=== PATIENT | female | born 1965 | race Caucasian/White ===

== ENCOUNTER 2022-02-14 09:03 | Outpatient (REF) | payer MEDICARE, MEDICAID, SELFPAY ==
--- NOTE | ~2022-02-14 | MM_ITS ---
EXAMINATION: MM SCREENING DIGITAL BREAST TOMOSYNTHESIS, BILATERAL CLINICAL INFORMATION: Screening. Asymptomatic. The lifetime risk of breast cancer based on the Tyrer-Cuzick Model is 10%. COMPARISON: Mammography: 02/04/2019 (new baseline) TECHNIQUE: Digital breast tomosynthesis is performed in both the craniocaudal and mediolateral oblique views along with computer-aided detection (CAD). Synthesized 2D images are generated from the tomosynthesis. FINDINGS: There are scattered areas of fibroglandular density (ACR BI-RADS breast composition Category b). Parenchymal pattern is similar to new baseline exam 2019. There is no interval mass or architectural abnormality or abnormal calcifications. Again, there are grouped punctate dermal calcifications mid 5:00 right breast. The axilla are unremarkable. MM/MM tomosynthesis screening BI IMPRESSION: There are no significant changes from prior study. ASSESSMENT: BI-RADS 2: Benign RECOMMENDATION: Routine annual mammography screening. This patient's information was entered into a reminder system with a target due date for their next mammogram.
--- NOTE | ~2022-02-14 | MM_ITS ---
EXAMINATION: BONE DENSITOMETRY CLINICAL INDICATION: Menopausal. COMPARISON: None (current study represents initial baseline exam). TECHNIQUE: Using a [employer] DXA System (software version: 13.1) manufactured by [employer], dual-energy x-ray absorptiometry was performed of the lumbar spine and left hip. The images are of good technical quality. Summary results are attached. FINDINGS: AP SPINE L1-L4: BMD 1.253 g/cm2, Z-score 0.6, T-score 0.6, normal. LEFT FEMUR, NECK: BMD 1.174 g/cm2, Z-score 1.5, T-score 1.0, normal. LEFT FEMUR, TOTAL: BMD 1.178 g/cm2, Z-score 1.4, T-score 1.3, normal. IDENTIFIED RISK FACTORS: Tobacco use (current smoker), history of fracture (adult). HISTORY OF FRACTURE: No insufficiency fracture reported. . MEDICATIONS: Calcium supplements or multivitamin, vitamin D. MM/XR DEXA axial skeleton IMPRESSION: 1. DIAGNOSIS: Normal bone density based on the lowest T-score value of 0.6 in the lumbar spine applying World Health Organization criteria. 2. 10-YEAR FRACTURE RISK PREDICTION, FRAX: According to the guidelines, FRAX calculation should only be performed on patients in the osteopenia bone density category. Therefore, FRAX was not performed on this patient. 3. Treatment Recommendations: NOF guidelines recommend consideration for treatment in postmenopausal women and men age 50 and older presenting with the following: -A hip or vertebral (clinical or morphometric) fracture. -T-score less than or equal to -2.5 at the femoral neck or spine after appropriate evaluation to exclude secondary causes. -Low bone mass at the hip or spine and a 10-year fracture probability by FRAX of greater than or equal to 3% for hip fracture or greater than or equal to 20% for major osteoporotic fracture based on the [place] adapted WHO algorithm. 4. Other Recommendations: All treatment decisions require clinical judgment and consideration of individual patient factors, including patient preferences, comorbidities, previous drug use, risk factors not captured in the FRAX model (e.g. frailty, falls, vitamin D deficiency, increased bone turnover, interval significant decline in bone density) and possible under or overestimation of fracture risk by FRAX. FUTURE SCAN RECOMMENDATION: People with diagnosed cases of osteoporosis or at high risk for fracture should have regular bone mineral density tests. For patients eligible for Medicare, routine testing is allowed once every 2 years. The testing frequency can be increased to one year for patients who have rapidly progressing disease, those who are receiving or discontinuing medical therapy to restore bone mass, or have additional risk factors.
== END 2022-02-14 09:04 | disposition home or self-care (01) ==
LOC: HO.MAMMO 09:03
PROVIDERS: PCP Internal Medicine; Visit Provider Internal Medicine
DX: Z12.31 Encounter for screening mammogram for malignant neoplasm of breast (principal); Z13.820 Encounter for screening for osteoporosis; Z78.0 Asymptomatic menopausal state
CPT/HCPCS: 77063; 77067; 77080

== ENCOUNTER 2024-07-08 14:09 | Outpatient (REF) | payer MEDICARE, MEDICAID, SELFPAY ==
[2024-07-09 10:04] LABS: HPV 16,18/45 See PAP report
== END 2024-07-08 14:10 | disposition home or self-care (01) ==
LOC: HO.LNP 14:09
PROVIDERS: PCP Internal Medicine; Visit Provider Obstetrics & Gynecology
DX: N95.0 Postmenopausal bleeding (principal); N84.1 Polyp of cervix uteri
CPT/HCPCS: 57500; 87624; 88175; 88305; 99202

== ENCOUNTER 2024-07-08 14:17 | Outpatient (AMB) | payer MEDICARE, MEDICAID, SELFPAY ==
--- NOTE | 2024-07-08 14:15 | A.OFFVIS_ITS ---
Vital Signs 07/08/24 14:18 Height 5 ft 3.5 in Weight 194 lb BMI 33.8 BP 130/86 Intake Visit Reasons: PMB Route Returner Required: No Information Interpreted: non-clinical & clinical Administrative Personal Assistant: Administrative Personal Assistant Present (Mame DURBINJess) Accompanied by: Self / Same As Patient Allergies codeine [CODEINE] Allergy (Unknown, Unverified 07/08/24 14:19) I PASS OUT Post menopausal: Yes HPI Comments Details: Presenting because of vaginal bleeding associated with blood clots that started last week. Last co testing in 2012 was LISA 1 can not rule out high-grade, colpo/biopsy showed LISA 1, since then no co testing done Last mammogram was in 02/23 was BI-RADS 2, the patient is scheduled for a mammogram soon [facility] Medical History (Updated 07/08/24 @ 14:59 by Yoni Dowell MD) LISA I (cervical intraepithelial neoplasia I) Family History Father HTN (hypertension) Maternal Aunt Breast cancer Social History Household Members: Family Housing: House Alcohol intake: former Patient Tobacco Use Status: Current everyday Tobacco user Tobacco use type: Cigarette Cigarettes Per Day: 10 Years Smoked: 30 Current occupational status: disabled Sexual orientation: Straight/Heterosexual Gender identity: Female Female Reproductive History Menstrual Menopause type: natural Total pregnancies: 6 Full term: 3 Number of Living Children: 3 Ab spontaneous: 3 Review of Systems Const All systems reviewed & are unremarkable except as noted in HPI and below Physical Exam Vital Signs: Last Vital Signs BP 130/86 07/08/24 14:18 BMI result Body Mass Index 33.8 General: Yes no CVA tenderness External Female Exam: normal external appearance and normal appearance of the urethra Speculum Exam - Vagina: normal appearance of the vagina, normal palpation, no lesions and no masses Speculum Exam - Cervix: normal appearance of the cervix, normal palpation, no lesions, no masses, nontender and Other cervical findings present (Endocervical polyp) Bimanual exam- vagina & uterus: normal bimanual exam, normal palpation, uterine size normal, normal palpation, uterine shape normal, No Cervical tenderness present and non-tender Bimanual Exam- Adnexa, other: normal adnexae Back/Spine/Pelvis Back: no CVA tenderness Office Procedures Endometrial Biopsy Details: The patient was counseled regarding the indication and benefits of endometrial sampling to rule out endometrial pathology including not limited to endometrial hyperplasia or endometrial cancer and others; The alternatives (Either do nothing vs. hysteroscopy D&C) & the risks were discussed with the patient including but not limited: pain, uterine perforation, bleeding, infection, possible injury to bladder, bowel, ureter, possible need for blood transfusion w ith all its possible risks. The patient verbalized understanding all questions answered and signed consent. The patient was placed into the dorsal lithotomy position; a speculum was inserted in the vagina. Using aseptic technique for the procedure, the cervix was cleansed with Betadine. The anterior lip of the cervix was grasped with a single tooth tenaculum. The uterus was sounded to 7 cm with a 4 mm Pipelle was used. Tissues samples were obtained and placed in formalin, in a patient labeled container and sent to the pathology department. At the end of the procedure, there was minimal b leeding noted The patient tolerated the procedure well and was discharged in good condition with the following instructions: Nothing in the vagina until the bleeding stops. No sex until the bleeding stops, to call if any of the following occurs: fever (>100.4), flu-like symptoms, abdominal pain, heavy bleeding, four smelling vaginal discharge. The patient was instructed to schedule a Follow up appointment in 2 weeks to discuss pathology results of the biopsy and treatment options. This note was generated with a voice recognition program. Some errors may have been overlooked during the review of this note. Sometimes these errors may affect the content or meaning of a given sentence. 13508-Eegrvczzfrb Biopsy STOCK PARTS INSPECTOR Biopsy Before the procedure was started, discussed with the patient the procedure technique, alternatives & all the risks associated with the procedure including but not limited to: bleeding , infection, uterine perforation, injury to bladder, vessels, bowels, possible need for transfusion with all its risks, and others. All questions were answered, the patient verbalized understanding and signed the consent. Urine test done in the office was negative Using a long Andreina Clamp the endocervical polyp was grasped and twisted around till it came off, hemostasis was secured using pressure. The patient tolerated t he procedure well. Instructions were given to the patient to call if bleeding, temp>100.4 occur. The patient verbalized understanding and agreed with the plan. This note was generated with a voice recognition program. Some errors may have been overlooked during the review of this note. Sometimes these errors may affect the content or meaning of a given sentence. 63945-Zpdiyd of Cervix Procedure code (CPT) selection complete Assessment & Plan Assessment & Plan (1) Postmenopausal bleeding: Code(s): N95.0 - Postmenopausal bleeding Category: Medical Plan: Discussed with the patient the differential diagnosis of post menopausal bleeding with normal pelvic exam including but not limited to, endometrial hyperplasia, cancer, polyps and other causes; co testing done. Recommended to the patient that the next step is an endometrial sampling via hysteroscopy D&C possible polypectomy versus endometrial biopsy to r/o endometrial pathology including hyperplasia or cancer. All the pros and cons risks and benefits of each approach were discussed with the patient, endometrial biopsy being less invasive, office procedure with less sensitivity and inability diagnose a polyp and removal versus hysteroscopy done under anesthesia more invasive more sensitive to endometrial cancer and possibility of diagnosing and endometrial polyp with the possibility of polypectomy. All questions were answered pt verbalized understanding and decided to proceed with endometrial biopsy. EMB done, see procedure note Instructed the patient to schedule an ultrasound with a follow-up appointment in 2 weeks. This note was generated with a voice recognition program. Some errors may have been overlooked during the review of this note. Sometimes these errors may affect the content or meaning of a given sentence. (2) Endocervical polyp: Code(s): N84.1 - Polyp of cervix uteri Category: Medical Plan: Discussed with the patient the finding on pelvic exam showing endocervical polyp, polypectomy done, see procedure note Orders: Orders Pap Smear Today N84.1 - Polyp of cervix uteri, N95.0 - Postmenopausal bleeding US pelvic and transvaginal Today N95.0 - Postmenopausal bleeding AMB STOCK PARTS INSPECTOR Biopsy Today N84.1 - Polyp of cervix uteri Surgical Today N84.1 - Polyp of cervix uteri, N95.0 - Postmenopausal bleeding AMB Endometrial Biopsy Today N95.0 - Postmenopausal bleeding Coding Level of Care Code New Pt Level 3 (29120) Procedure Only Diagnoses Postmenopausal bleeding N95.0 Endocervical polyp N84.1 CPT Codes Endometrial Biopsy - CPT: 06121-Qtvsbxtclka Biopsy ([id number]) STOCK PARTS INSPECTOR Biopsy - CPT: 56454-Lpyeya of Cervix ([id number])
[2024-07-08 14:18] VITALS: BP 130/86; BMI 33.8
== END 2024-07-08 15:10 | disposition home or self-care (01) ==
PROVIDERS: PCP Internal Medicine; Visit Provider Obstetrics & Gynecology
DX: N95.0 Postmenopausal bleeding (principal); N84.1 Polyp of cervix uteri
CPT/HCPCS: 57500; 99203

== ENCOUNTER 2025-06-08 20:12 | Emergency (ER) | payer MEDICARE, MEDICAID, SELFPAY ==
[2025-06-08 20:37] VITALS: BP 178/95; PULSE 108; RESP 20; TEMP 36.9; O2SAT 96; BMI 34.1
--- NOTE | 2025-06-08 20:46 | ECG_ITS ---
Test Reason : PALPITATIONS Blood Pressure : */* mmHG Vent. Rate : 96 BPM Atrial Rate : 96 BPM P-R Int : 184 ms QRS Dur : 78 ms QT Int : 368 ms P-R-T Axes : 61 88 69 degrees QTcB Int : 464 ms Normal sinus rhythm Septal infarct , age undetermined Abnormal ECG No previous ECGs available Referred By: Generic ED Physician Electronically Signed By: Diallo Genao
[2025-06-08 21:20] LABS: Hematocrit 46.8 % (37.0-47.0); Hemoglobin 16.0 g/dl (12.0-16.0); Imm Gran Abs Auto 0.02 X10*3/uL (0.00-0.03); Imm Gran Pct Auto 0.2 % (0.0-0.4); Lymphocytes Absolute Auto 1.8 X10*3/uL (1.2-4.9); MANUAL DIFF FLAG NO; Mean Corpuscular HGB Conc 34.2 g/dl (31.0-35.0); Mean Corpuscular Hemoglobin 29.5 pg (27.0-33.0); Mean Corpuscular Volume 86.3 fL (80.0-98.0); NRBC Abs Auto 0.000 X10*3/uL (0.0-0.012); NRBC Pct Auto 0.0 /100WBC (0.0-0.2); Platelet Count 286 X10*3/uL (160-400); Red Blood Count 5.42 X10*6/uL (4.20-5.50); White Blood Count 8.3 X10*3/uL (4.8-10.8)
[2025-06-08 21:22] LABS: Appearance Urine Clear; Glucose Urine UA Negative (Negative); PH 7.5 (5.0-9.0); Specific Gravity - Urine <= 1.005 (1.005-1.025); UMIC TRIGGER UACC YES
[2025-06-08 21:24] LABS: UACC Culture Trigger YES
[2025-06-08 21:36] LABS: Anion Gap 11 (12-20); Blood Urea Nitrogen 6 mg/dL (9-16); Calcium 9.8 mg/dL (8.4-10.2); Carbon Dioxide 25 mmol/L (22-29); Chloride 104 mmol/L (96-108); Creatinine Clr Calc Pharmacy 95.9; Estimated Glomerular Filt Rate > 60; Potassium 4.1 mmol/L (3.3-5.1); Sodium 136 mmol/L (135-145)
[2025-06-08 21:38] LABS: Alanine Aminotransferase 37 U/L (0-31); Albumin Level 4.7 g/dL (3.5-5.0); Alkaline Phosphatase 93 U/L (39-117); Aspartate Amino Transferase 33 U/L (5-31); Lipase 20 U/L (8-78); Total Protein 8.0 g/dL (6.5-8.0)
[2025-06-08 21:39] LABS: IDNOW Serial# 55D5AD1C; Strep A Nucleic Acid Negative (Negative)
[2025-06-08 21:46] LABS: Troponin-I High Sensitivity < 2.7 ng/L (<3.5-17.0)
[2025-06-08 22:05] VITALS: BP 149/82; PULSE 104; RESP 20; TEMP 36.9; O2SAT 96
--- NOTE | 2025-06-08 22:38 | ECG_ITS ---
Test Reason : PALPITATION Blood Pressure : */* mmHG Vent. Rate : 99 BPM Atrial Rate : 99 BPM P-R Int : 186 ms QRS Dur : 78 ms QT Int : 356 ms P-R-T Axes : 73 96 82 degrees QTcB Int : 456 ms Normal sinus rhythm Rightward axis Borderline ECG When compared with ECG of 08-Jun-2025 20:58, No significant change was found Referred By: Arcelia Marquez Electronically Signed By: Diallo Genao
--- NOTE | 2025-06-08 22:54 | ED_ITS ---
HPI - General Adult General Chief complaint: General Medical Stated complaint: high blood pressure Time Seen by Provider: 06/08/25 22:27 Source: patient, family and old records reviewed Mode of arrival: ambulatory Limitations: no limitations History of Present Illness ED Provider: DR. Marquez HPI narrative: 59-year-old female history of hypertension, anxiety, seasonal asthma use albuterol once every 5 years, was prescribed albuterol by her PCP the patient had to use it every 6 hours for 2 days patient is feeling jittery, anxious, fine tremors, checked her blood pressure at home systolic was 170, palpitation patient came to the hospital. Patient currently has no wheezing, no shortness of breath, appeared very anxious, feels palpitation and rapid heartbeat. Patient is suggesting that all her symptoms is secondary to albuterol side- effect. No dysuria, no frequency urination, no hematuria. Related Data Previous Rx's ?Medication ?Instructions ?Recorded lisinopril 5 mg tablet 5 mg PO DAILY #90 tabs 03/29 albuterol sulfate 90 mcg/actuation 2 puff inhalation Q 6H PRN 06/02/25 aerosol inhaler (Ventolin HFA) shortness of breath or wheezing #8.5 grams Allergies Allergy/AdvReac Type Severity Reaction Status Date / Time codeine (CODEINE) Allergy Unknown I PASS Verified 06/08/25 22:52 OUT loratadine (From Claritin) Allergy Unknown Verified 06/08/25 22:52 procaine (From Novocain) Allergy Palpitation Verified 06/08/25 22:52 s Review of Systems 2 Review of Systems: All other systems are reviewed and are negative Constitutional: Reports as per HPI and Reports no additional constitutional complaints Eyes: Reports as per HPI and Reports no additional eye complaints Reports system reviewed and no additional complaints, except as documented Cardiovascular: Reports as per HPI and Reports no additional cardiovascular complaints Respiratory: Reports as per HPI and Reports no additional respiratory complaints Gastrointestinal: Reports as per HPI and Reports no additional gastrointestinal complaints Genitourinary: Reports no additional female genitourinary complaints Musculoskeletal: Reports no additional musculoskeletal complaints Skin/Breast: Reports system reviewed and no additional complaints, except as docu Psychiatric: Reports no additional psychiatric complaints Endocrine: Reports no additional endocrine complaints Hematologic/Lymphatic: Reports no additional hematologic/lymphatic complaints Allergic/Immunologic: Reports no additional allergic/immunologic complaints Reports system reviewed and no additional complaints, except as documented and Reports Abnormal speech present [facility] Past Medical History Medical History LISA I (cervical intraepithelial neoplasia I) Family History Family History Father HTN (hypertension) Maternal Aunt Breast cancer Social History Social History Household Members: Family Housing: House Alcohol intake: former Patient Tobacco Use Status: Current everyday Tobacco user Tobacco use type: Cigarette Cigarettes Per Day: 10 Years Smoked: 30 Smoked in Last 30 Days: Yes Use of substances other than those prescribed or required for medical reasons: No Advance Directives: No Advance Directives Information Provided: No Patient : No Current occupational status: disabled Sexual orientation: Straight/Heterosexual Gender identity: Female Physical Exam ED Vital Signs: Vital Signs - 24 hr 06/08/25 20:37 06/08/25 22:05 Temperature 98.4 F 98.4 F Pulse Rate 108 H 104 H Respiratory Rate 20 20 Blood Pressure 178/95 H 149/82 H Pulse Oximetry 96 96 Oxygen Delivery Method Room Air Room Air BMI result Body Mass Index 34.1 Vital signs have been reviewed and appear to be correct. Blood pressure elevated. Heart rate normal. Respiratory rate normal. Temperature normal. Oxygen saturation normal. Appearance: Alert. Oriented X3. No acute distress. Head: Normal external exam. Normocephalic. Atraumatic. No Dumont signs noted. No raccoon eyes noted Eyes: PERRLA. EOMI. Conjunctiva and sclera normal. Eyelids normal. ENT: TM's Normal. Pharynx normal. Uvula midline. Moist mucous membranes. No trismus noted. No drooling noted. No muffled voice noted. Neck: Normal inspection. Neck supple. FROM. No adenopathy. Thyroid Normal. No meningeal signs. No neck mass noted. CVS: Normal heart rate and rhythm. Heart sound normal. No murmurs noted. Pulses normal throughout. Respiratory: No respiratory distress. Painless inspiration. Breath sounds normal. No wheezes/rales/rhonchi noted. Chest nontender. No accessory muscle usage noted or decreased air movement noted. Abdomen: Soft and nontender. Bowel sounds normal in all 4 quadrants. No distention noted. No organomegaly noted. No visible injury noted. Back: No CVA tenderness. Full range of motion noted. Skin: Skin warm and dry. Normal skin color. Normal skin turgor. No rashes/lesions/lacerations noted. Extremities: No lower extremity edema. Extremities exhibit normal range of motion. Extremities nontender. Neuro: Oriented X 3. Cranial nerve exam: II-XII are grossly intact No motor deficit. No sensory deficit. Reflexes normal. Course Reevaluation(s) Reevaluation #1: Side-effect of albuterol, presented with high blood pressure and palpitation with tachycardia feeling jittery and anxious. Patient in the ED showing no respiratory distress, no wheezing, no coughing, was given Valium, patient is more calmer, vital signs is improving while in the ED. Mild UTI patient has no neurological symptoms. Time: 00:20 Medications Administered Discontinued Medications Generic Name Dose Route Start Last Admin Trade Name Freq PRN Reason Stop Dose Admin Diazepam 2 mg 06/08/25 22:38 06/08/25 22:52 Diazepam 2 Mg Tablet PO 06/08/25 22:39 2 mg ONCE ONE Administration Medical Decision Making Differential Diagnosis Differential Diagnoses: The differential diagnosis associated with the presentation includes (Slept affective albuterol, anxiety, electrolyte derangement, severe anemia, ACS, dysrhythmia, UTI.) Admission/Observation Consideration of admission/observation: Escalation of care including admission/observation considered Lab Data MDM Lab Attestation statement: I reviewed the patient's lab results. 06/08/25 21:02 06/08/25 21:02 Labs: Lab Results 06/08/25 06/08/25 Range/Units 21:02 21:12 WBC 8.3 (4.8-10.8) X10*3/uL RBC 5.42 (4.20-5.50) X10*6/uL Hgb 16.0 (12.0-16.0) g/dl Hct 46.8 (37.0-47.0) % MCV 86.3 (80.0-98.0) fL MCH 29.5 (27.0-33.0) pg MCHC 34.2 (31.0-35.0) g/dl RDW 13.0 (11.0-16.0) % Plt Count 286 (160-400) X10*3/uL MPV 8.6 L (9.4-12.3) fL Immature Gran % (Auto) 0.2 (0.0-0.4) % Neut % (Auto) 69.4 (45-73) % Lymph % (Auto) 21.9 (20-40) % [place] % (Auto) 6.2 (2-11) % Eos % (Auto) 1.2 (0-4) % Baso % (Auto) 1.1 (0-2) % Lymph # (Auto) 1.8 (1.2-4.9) X10*3/uL [place] # (Auto) 0.5 (0.1-1.2) X10*3/uL Eos # (Auto) 0.1 (0.0-0.4) X10*3/uL Baso # (Auto) 0.1 (0.0-0.2) X10*3/uL Abs Immat Gran (auto) 0.02 (0.00-0.03) X10*3/uL Absolute Neuts (auto) 5.7 (2.0-8.3) x10*3/uL Absolute Nucleated RBC 0.000 (0.0-0.012) X10*3/uL Nucleated RBC % (auto) 0.0 (0.0-0.2) /100WBC Sodium 136 (135-145) mmol/L Potassium 4.1 (3.3-5.1) mmol/L Chloride 104 (96-108) mmol/L Carbon Dioxide 25 (22-29) mmol/L Anion Gap 11 L (12-20) BUN 6 L (9-16) mg/dL Creatinine 0.67 (0.5-1.4) mg/dL Estim Creat Clear Calc 95.9 Estimated GFR > 60 Random Glucose 124 H (60-115) mg/dL Calcium 9.8 (8.4-10.2) mg/dL Total Bilirubin 0.3 (0.0-1.0) mg/dL Direct Bilirubin 0.1 (0.0-0.5) mg/dL AST 33 H (5-31) U/L ALT 37 H (0-31) U/L Alkaline Phosphatase 93 (39-117) U/L Troponin I High Sens < 2.7 (<3.5-17.0) ng/L Total Protein 8.0 (6.5-8.0) g/dL Albumin 4.7 (3.5-5.0) g/dL Lipase 20 (8-78) U/L Urine Color Yellow Urine Appearance Clear Urine pH 7.5 (5.0-9.0) Ur Specific [place] <= 1.005 (1.005-1.025) Urine Protein Negative (Neg-Trace) mg/dL Urine Glucose (UA) Negative (Negative) mg/dL Urine Ketones Negative (Negative) mg/dL Urine Blood Negative (Negative) Urine Nitrite Negative (Negative) Ur Leukocyte Esterase Small (1+) H (Negative) Urine RBC 0-2 (0-2) /HPF Urine WBC 11-20 H (0-5) /HPF Ur Squamous Epith Cells 11-20 (0-2) /HPF Urine Bacteria 4+ (None Seen) Hyaline Casts 0-2 (0-2) /LPF S. pyogenes GrpA WILL Negative (Negative) Discharge Plan Discharge Clinical Impression: Anxiety, Albuterol adverse reaction Patient Disposition: Home, Self-Care Instructions: Anxiety (ED) Prescriptions: No Action lisinopril 5 mg tablet 5 mg PO DAILY Qty: 90 1RF albuterol sulfate [Ventolin HFA] 90 mcg/actuation HFA aerosol inhaler 2 puff inhalation Q6H PRN (Reason: shortness of breath or wheezing) Qty: 8.5 0RF Referrals: Ana M Naik PA [Primary Care Provider, Hospitalist] Print Language: Spanish
[2025-06-08 23:18] VITALS: BP 150/82; PULSE 94; RESP 12; O2SAT 97
[2025-06-08 23:32] VITALS: BP 150/82; PULSE 94; RESP 12; TEMP 36.6; O2SAT 97
== END 2025-06-08 23:39 | disposition home or self-care (01) ==
PROVIDERS: Emergency Provider Emergency Medicine; PCP Physician Assistant
DX: F41.9 Anxiety disorder, unspecified (principal); R00.2 Palpitations; R00.0 Tachycardia, unspecified; T48.6X5A Adverse effect of antiasthmatics, initial encounter; Y92.9 Unspecified place or not applicable; J45.909 Unspecified asthma, uncomplicated; I10 Essential (primary) hypertension; Z88.4 Allergy status to anesthetic agent; Z88.5 Allergy status to narcotic agent
CPT/HCPCS: 36415; 80048; 80076; 81001; 83690; 84484; 85025; 87086; 87147; 87651; 93005; 99284

== ENCOUNTER → 2025-06-08 20:46 | Outpatient (BNV) | payer MEDICARE, MEDICAID, SELFPAY | PROVIDERS: Emergency Provider Emergency Medicine; PCP Physician Assistant; Visit Provider Internal Medicine Cardiovascular Disease | DX: R94.31 Abnormal electrocardiogram [ECG] [EKG] (principal); R00.2 Palpitations | CPT/HCPCS: 93010 ==

== ENCOUNTER 2025-06-10 05:23 | Emergency (ER) | payer MEDICARE, MEDICAID, SELFPAY ==
[2025-06-10 05:26] VITALS: BP 187/86; PULSE 94; RESP 20; TEMP 36.3; O2SAT 97; BMI 33.8
[2025-06-10 05:44] VITALS: BP 181/84; PULSE 94; RESP 18; O2SAT 94
--- NOTE | 2025-06-10 05:56 | PC.NURSE ---
pt reports taking her blood pressure at 0300 today and noting it was elevated above 180 systolic. She was unsure if she took her lisinopril and decided to take another dose. Her b/p has not gone down lower then 155 systolic and this is what brings her in. pt denies chest pain or headache at this time.
--- NOTE | 2025-06-10 05:58 | MHC.EDTECH ---
pt refusing blood work until she is seen by the provider. rn aware.
--- NOTE | 2025-06-10 06:18 | ED_ITS ---
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 She has had no medications for anxiety at home. No chest pain no headaches no vision changes no weakness in upper or lower extremities. Related Data Previous Rx's ?Medication ?Instructions ?Recorded lisinopril 5 mg tablet 5 mg PO DAILY #90 tabs 03/29 albuterol sulfate 90 mcg/actuation 2 puff inhalation Q 6H PRN 06/02/25 aerosol inhaler (Ventolin HFA) shortness of breath or wheezing #8.5 grams Allergies Allergy/AdvReac Type Severity Reaction Status Date / Time codeine (CODEINE) Allergy Unknown I PASS Verified 06/10/25 05:28 OUT loratadine (From Claritin) Allergy Unknown Verified 06/10/25 05:28 procaine (From Novocain) Allergy Palpitation Verified 06/10/25 05:28 s Review of Systems Constitutional: Constitutional: Reports as per [facility] Past Medical History Medical History LISA I (cervical intraepithelial neoplasia I) Family History Family History Father HTN (hypertension) Maternal Aunt Breast cancer Social History Social History Household Members: Family Housing: House Alcohol intake: former Patient Tobacco Use Status: Current everyday Tobacco user Tobacco use type: Cigarette Cigarettes Per Day: 10 Years Smoked: 30 Advance Directives: No Current occupational status: disabled Sexual orientation: Straight/Heterosexual Gender identity: Female Physical Exam ED Exam Exam: General: ?Appears of stated age, somewhat anxious, ? ?CV: RRR, no obvious murmurs appreciated ? ?Resp: ?No wheezing rales rhonchi no stridor moving air well ? Abd: ?Bowel sounds are present, no tenderness no rebound no rigidity ? ?MSK: FROM, strength 5/5 all extremities ? Skin: Warm, dry, intact, ? ?Neuro: ?Alert and oriented x3, moving upper and lower extremities symmetrically, no obvious facial asymmetry noted, cranial nerves 2-12 intact Vital Signs: Vital Signs - 24 hr 06/10/25 05:26 06/10/25 05:44 06/10/25 07:01 Temperature 97.4 F Pulse Rate 94 94 81 Respiratory Rate 20 18 20 Blood Pressure 187/86 H 181/84 H 172/86 H Pulse Oximetry 97 94 Oxygen Delivery Method Room Air Room Air BMI result Body Mass Index 33.8 Medications Administered Discontinued Medications Generic Name Dose Route Start Last Admin Trade Name Freq PRN Reason Stop Dose Admin Diazepam 4 mg 06/10/25 06:46 06/10/25 07:00 Diazepam 2 Mg Tablet PO 06/10/25 06:47 4 mg ONCE ONE Administration Medical Decision Making Medical Decision Making MDM Narrative: 7:30 AM 06/10/2025 (Dr. Neymar Pantoja): You were reviewed patient's workup from June 08, unremarkable blood work, cardiac enzymes, ECG, today's ECG with no changes to suspect underlying dysrhythmia or ACS, discussed long-term high blood pressure management, no reason for repeating patient's blood work, there was no evidence of any end-organ damage such as stroke, we will provide medication for anxiety, no other psychiatric issues, strong recommendation to follow up with the PCP. Differential Diagnosis Differential Diagnoses: The differential diagnosis associated with the presentation includes (Chronic hypotension, ACS, stroke, ARIEL,) Admission/Observation Consideration of admission/observation: Escalation of care including admission/observation considered Independent Interpretation I performed an independent interpretation of an: EKG (82 beats per minute otherwise normal ECG without dysrhythmia, AV will blocks or ST-T changes to suspect underlying ACS, my independent interpretation) Tests considered The following testing was considered but not selected: CBC, troponin, chemistry, CT brain Chronic Conditions Patient?s care impacted by: Hypertension Discharge Plan Discharge Clinical Impression: Hypertension, Anxiety about health Patient Disposition: Home, Self-Care Additional Instructions: Please to make sure taking your blood pressure medications daily and had the same time, as you were discussed during a prior visit albuterol can cause anxiety and elevated heart rate use it only if you are having wheezing or asthma exacerbation otherwise using albuterol for perceived shortness of breath without an actual asthma attack is going to give you palpitations, can make a anxious and elevate your blood pressure. I reviewed your prior workup all your blood work and cardiac enzymes were really reassuring, ECG today is unremarkable. Please get in touch with your PCP and make sure that you communicate the ER visits and have something that would help you for breakthrough anxiety at home and to prevent your anxiety. Prescriptions: No Action lisinopril 5 mg tablet 5 mg PO DAILY Qty: 90 1RF albuterol sulfate [Ventolin HFA] 90 mcg/actuation HFA aerosol inhaler 2 puff inhalation Q6H PRN (Reason: shortness of breath or wheezing) Qty: 8.5 0RF Referrals: Ana M Naik PA [Primary Care Provider, Hospitalist] - 10 days Clinical Impression: Anxiety about health; Hypertension Discharge Date/Time: 06/10/25 07:04 Print Language: Slovak
--- NOTE | 2025-06-10 06:34 | ECG_ITS ---
Test Reason : htn Blood Pressure : */* mmHG Vent. Rate : 82 BPM Atrial Rate : 82 BPM P-R Int : 176 ms QRS Dur : 82 ms QT Int : 370 ms P-R-T Axes : 78 91 79 degrees QTcB Int : 432 ms Normal sinus rhythm Rightward axis Septal infarct , age undetermined Abnormal ECG When compared with ECG of 08-Jun-2025 22:43, No significant change was found Referred By: Neymar Pantoja Electronically Signed By: Diallo Genao
[2025-06-10 07:01] VITALS: BP 172/86; PULSE 81; RESP 20
== END 2025-06-10 07:04 | disposition home or self-care (01) ==
PROVIDERS: Emergency Provider Emergency Medicine; PCP Physician Assistant
DX: I10 Essential (primary) hypertension (principal); F41.9 Anxiety disorder, unspecified; R00.2 Palpitations
CPT/HCPCS: 93005; 99283; 99284

== ENCOUNTER → 2025-06-10 06:34 | Outpatient (BNV) | payer MEDICARE, MEDICAID, SELFPAY | PROVIDERS: Emergency Provider Emergency Medicine; PCP Physician Assistant; Visit Provider Internal Medicine Cardiovascular Disease | DX: R94.31 Abnormal electrocardiogram [ECG] [EKG] (principal); I10 Essential (primary) hypertension | CPT/HCPCS: 93010 ==

== ENCOUNTER 2025-06-18 16:35 | Outpatient (AMB) | payer MEDICARE, MEDICAID, SELFPAY ==
--- NOTE | 2025-06-18 16:36 | MHC.PC.OV ---
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 Required: No Allergies codeine (CODEINE) Allergy (Unknown, Verified 06/18/25 16:38) I PASS OUT loratadine (From Claritin) Allergy (Verified 06/18/25 16:38) Unknown procaine (From Novocain) Allergy (Verified 06/18/25 16:38) Palpitations Medication List - Last Reconciled 06/18/25 by Sharon Harrington LPN albuterol sulfate 90 mcg/actuation (Ventolin HFA) 2 puffs inhalation Q6H PRN lisinopril 5 mg PO DAILY Tobacco use date assessed: 06/18/25 Dental Screening Dental Screen Date: 06/18/25 Did you have a dental visit in the last 12 months?: No Did you have a dental problem in the last 6 months where you did not have access to dental care?: No Was dental information given to patient?: Patient declined (Pt refuse to see dentist) HPI HPI Comments History of Present Illness Details 59-year-old female with history of hypertension, asthma (COPD? ), endocervical polyp, tremors, cigarette smoking presenting to the office today for management of chronic conditions and to establish care Asthma/?COPD- albuterol prn. Smoking 1/2ppd, wants to get down to 1/2 cigarette per day. HTN- uncontrolled blood pressure on repeat 180/90. Reports compliance with lisinopril 5 mg daily. Tremors-requesting referral for EMG Anxiety/depression- PHQ-9 score 7 Obesity- BMI 34.2 Health maintenance: Due for mammogram Last Pap 07/2024, follows annually Due for Cologuard ROS: General: No fevers, malaise, unintentional weight loss HEENT: No blurred vision, diplopia. No sore throat, nasal congestion, rhinorrhea, sinus pain, ear pain Cardiovascular: No chest pain, palpitations, or leg edema Respiratory: No shortness of breath, wheezing, cough GI: No abdominal pain, nausea, vomiting, diarrhea, constipation, melena, hematochezia : No dysuria, hematuria, increased urinary frequency, decreased urinary output MSK: No myalgia, back pain Neuro: No headaches, weakness, paresthesias Skin: No rashes or lesions EXAM: Constitutional - Awake and Alert, No apparent distress Eyes - PERRL Cardiovascular - S1S2, RRR, No edema Respiratory - Normal lung expansion, Normal respiratory effort, No respiratory distress, CTA bilaterally Extremities - no calf tenderness bilaterally, no swelling Skin - Warm/Dry Neurological - Alert & oriented x3, upper extremity tremors Psychological - Appropriate affect [facility] Medical History LISA I (cervical intraepithelial neoplasia I) Family History Father HTN (hypertension) Maternal Aunt Breast cancer Social History Household Members: Family Housing: House Alcohol intake: former Patient Tobacco Use Status: Current everyday Tobacco user Tobacco use type: Cigarette Cigarettes Per Day: 10 Years Smoked: 30 e-Cigarette/Vaping Use: Never Used service: No Current occupational status: disabled Sexual orientation: Straight/Heterosexual Gender identity: Female Cognitive needs: Yes (difficulty focus ) Hearing needs: No Vision needs: Yes (Glasses) Questionnaire PHQ-9 Over the last 2 weeks, how often have you been bothered by any of the following problems? 1. Little interest or pleasure in doing things: more than half the days 2. Feeling down, depressed, or hopeless: several days 3. Trouble falling or staying asleep, or sleeping too much: not at all 4. Feeling tired or having little energy: several days 5. Poor appetite or overeating: not at all 6. Feeling bad about yourself - or that you are a failure or have let yourself or your family down: several days 7. Trouble concentrating on things, such as reading the newspaper or watching television: more than half the days 8. Moving or speaking so slowly that other people could have noticed. Or the opposite - being so fidgety or restless that you have been moving around a lot more than usual: not at all 9. Thoughts that you would be better off or of hurting yourself in some way: not at all Total score: 7 Depression Screening Interpretation: Positive Depression Screening Follow-up: Follow-up Visit Requested Depression Screening Done: Yes 58484 - PHQ-9 Billing: Yes Source: Developed by Drs. Keyon Fitzgerald, Danyell Harrington, Harjeet Lewis and colleagues, with an educational gunjan from [employer]. Thrive Questionnaire I am a: Patient What is your living situation today?: I have a steady place to live THRIVE Score: 0 Physical exam (Primary Care) Vital Signs: Last Vital Signs Temp 96.7 F L 06/18/25 16:45 Pulse 88 06/18/25 16:45 BP 189/80 H 06/18/25 16:45 Pulse Ox 97 06/18/25 16:45 Oxygen Delivery Method Room Air 06/18/25 16:45 Tobacco/Smoking Status: Tobacco use Status Tobacco use date assessed 06/18/25 06/18/25 16:41 Patient Tobacco Use Status Current everyday Tobacco 06/18/25 16:41 Tobacco use type Cigarette 06/18/25 16:41 Depression Screening Interpretation: Positive Depression Screening Follow-up: Follow-up Visit Requested Coding Level of Care Code New Pt Level 4 (68191) Complex EM visit Add On G2211 Diagnoses Hypertension I10 Occasional tremors R25.1 Cigarette smoker F17.210 Additional Codes PHQ-9 - 38020 - PHQ-9 Billing: Yes ([id number]) Assessment & Plan Assessment & Plan (1) Hypertension: Code(s): I10 - Essential (primary) hypertension Category: Medical Plan: Uncontrolled. Increase lisinopril to 10 mg daily and add amlodipine 5 mg daily (2) Occasional tremors: Code(s): R25.1 - Tremor, unspecified Category: Medical Plan: Upper extremities bilaterally. Referred to physiatry (3) Cigarette smoker: Code(s): F17.210 - Nicotine dependence, cigarettes, uncomplicated Category: Social Hx Plan: Smoking cessation encouraged. Referred to lung cancer screening Plan Follow up in 2-3 weeks for bp check. Referred for mammogram. Cologuard ordered Orders: Orders CT lung screening Today F17.210 - Nicotine dependence, cigarettes, uncomplicated Lipid Panel 2 Weeks I10 - Essential (primary) hypertension MM tomosynthesis screening BI Today Z12.31 - Encounter for screening mammogram for malignant neoplasm of breast Basic Metabolic Panel 2 Weeks I10 - Essential (primary) hypertension LDL Cholesterol Direct Today E78.5 - Hyperlipidemia, unspecified Referrals Physiatry Referral R25.1 - Tremor, unspecified Cologuard Test Z12.11 - Encounter for screening for malignant neoplasm of colon, Z12.12 - Encounter for screening for malignant neoplasm of rectum Medications: New amlodipine 5 mg PO DAILY 90 tabs 1RF lisinopril 10 mg PO DAILY 90 tabs 0RF Discontinued lisinopril Discontinued Reason: Doctor's Order 5 mg PO DAILY 90 tabs 1RF
[2025-06-18 16:45] VITALS: BP 189/80; PULSE 88; RESP 18; TEMP 35.9; O2SAT 97; BMI 34.2
[2025-06-18 17:00] VITALS: BP 180/90
== END 2025-06-18 17:09 | disposition home or self-care (01) ==
LOC: HO.HMCHD 16:35
PROVIDERS: PCP Physician Assistant; Visit Provider Physician Assistant
DX: I10 Essential (primary) hypertension (principal); R25.1 Tremor, unspecified; F17.210 Nicotine dependence, cigarettes, uncomplicated

== ENCOUNTER → 2025-06-18 16:35 | Outpatient (BNVA) | payer MEDICARE, MEDICAID, SELFPAY | PROVIDERS: PCP Physician Assistant; Visit Provider Physician Assistant | DX: I10 Essential (primary) hypertension (principal); R25.1 Tremor, unspecified; F32.9 Major depressive disorder, single episode, unspecified; F41.9 Anxiety disorder, unspecified; Z13.31 Encounter for screening for depression; E66.9 Obesity, unspecified; F17.210 Nicotine dependence, cigarettes, uncomplicated | CPT/HCPCS: 96127; 99202 ==

== ENCOUNTER 2025-07-12 16:23 | Outpatient (AMB) | payer MEDICARE, MEDICAID, SELFPAY ==
--- NOTE | 2025-07-12 16:25 | MHC.PC.OV ---
Vital Signs 07/12/25 16:43 BP 164/80 H Intake Visit Reasons: BP/anxiety Kitchen Food Server Required: No Accompanied by: Self / Same As Patient Allergies codeine (CODEINE) Allergy (Unknown, Verified 07/12/25 16:25) I PASS OUT loratadine (From Claritin) Allergy (Verified 07/12/25 16:25) Unknown procaine (From Novocain) Allergy (Verified 07/12/25 16:25) Palpitations Medication List - Last Reconciled 07/12/25 by ETHAN Redding albuterol sulfate 90 mcg/actuation (Ventolin HFA) 2 puffs inhalation Q6H PRN amlodipine 5 mg PO DAILY lisinopril 10 mg PO DAILY nicotine (Nicoderm CQ) 1 patch transdermal DAILY Tobacco use date assessed: 06/18/25 Dental Screening Dental Screen Date: 06/18/25 HPI HPI Comments History of Present Illness Details 59-year-old female with history of hypertension, asthma (COPD? ), endocervical polyp, tremors, cigarette smoking presenting to the office today for management of chronic conditions and to establish care. She presents today 8 minutes late for her 15 minutes appointment. Asthma/?COPD- albuterol prn. Smoking 1/2ppd, wants to get down to 1/2 cigarette per day. Actively working on quitting. She is very concerned about the albuterol inhaler that she was prescribed several weeks ago during acute exacerbation. She states that immediately when she took the medication, she felt incredibly anxious with elevated blood pressures and so she presented to the ED. She states today that upon her own research using a search engine, she states that her symptoms persist as the albuterol ?lasts in her system 4-6 weeks. HTN- uncontrolled blood pressure on repeat 164/80. Has been compliant with amlodipine 5 mg daily and lisinopril 10 mg daily. Tremors-referred to neurology Anxiety/depression- as above, reports albuterol use weeks ago caused her significant anxiety. At the end of the visit, she feels that home life due to increased stress also causes her anxiety. She states otherwise, she does not have anxiety, only blaming the albuterol which she feels is still present in her system. She states that previously she had what sounds like a Ventolin inhaler rather than pro air which did not bother her. Discussed that both inhalers contain the same medication. She bring up her concerns on her anxiety multiple times. Reports she is following with a support group on Youtube. No counselor or psychiatrist Obesity- BMI 34.2. Not working on weight loss Health maintenance: Due for mammogram Last Pap 07/2024, follows annually Due for Cologuard-refused ROS: See HPI EXAM: Constitutional - Awake and Alert, No apparent distress Eyes - PERRL Cardiovascular - S1S2, RRR, No edema Respiratory - Normal lung expansion, Normal respiratory effort, No respiratory distress, CTA bilaterally Extremities - no calf tenderness bilaterally, no swelling Skin - Warm/Dry Neurological - Alert & oriented x3, upper extremity tremors Psychological - Appropriate affect, pressured speech ROS: see hpi EXAM: Constitutional - Awake and Alert, No apparent distress Eyes - PERRL Cardiovascular - S1S2, RRR, No edema Respiratory - Normal lung expansion, Normal respiratory effort, No respiratory distress, CTA bilaterally Extremities - no calf tenderness bilaterally, no swelling Skin - Warm/Dry Neurological - Alert & oriented x3 Psychological - Appropriate affect [facility] Medical History (Updated 07/13/25 @ 12:06 by ETHAN Redding) Anxiety HLD (hyperlipidemia) Hypertension Cigarette smoker LISA I (cervical intraepithelial neoplasia I) Family History Father HTN (hypertension) Maternal Aunt Breast cancer Social History Household Members: Family Housing: House Alcohol intake: former Patient Tobacco Use Status: Current everyday Tobacco user Tobacco use type: Cigarette Cigarettes Per Day: 10 Years Smoked: 30 e-Cigarette/Vaping Use: Never Used service: No Current occupational status: disabled Sexual orientation: Straight/Heterosexual Gender identity: Female Cognitive needs: Yes (difficulty focus ) Hearing needs: No Vision needs: Yes (Glasses) Physical exam (Primary Care) Vital Signs: Last Vital Signs BP 164/80 H 07/12/25 16:43 Tobacco/Smoking Status: Tobacco use Status Tobacco use date assessed 06/18/25 07/12/25 16:36 Patient Tobacco Use Status Current everyday Tobacco 07/12/25 16:36 Tobacco use type Cigarette 07/12/25 16:36 e-Cigarette/Vaping Use Never Used 07/12/25 16:36 Coding Level of Care Code Est Pt Level 4 (97699) Complex visit Add On G2211 Diagnoses Hypertension I10 Occasional tremors R25.1 Cigarette smoker F17.210 Wheezing R06.2 Anxiety F41.9 Assessment & Plan Assessment & Plan (1) Hypertension: Code(s): I10 - Essential (primary) hypertension Category: Medical Plan: Uncontrolled. Increase l increase lisinopril to 20 mg daily and continue amlodipine 5 mg daily. She is refusing to come back for to be blood pressure check. Check blood pressures at home (2) Occasional tremors: Code(s): R25.1 - Tremor, unspecified Category: Medical Plan: Has been referred to Neurology, awaiting appointment (3) Cigarette smoker: Code(s): F17.210 - Nicotine dependence, cigarettes, uncomplicated Category: Medical Plan: Smoking cessation encouraged. Referred to lung cancer screening (4) Wheezing: Code(s): R06.2 - Wheezing Category: Medical Plan: Referred to pulmonology. Can use albuterol inhaler as needed. Did discuss with the patient that the peak effect of albuterol is at about 15-30 minutes and steadily decreases. The medication would be completely cleared from system long before 4-6 weeks. (5) Anxiety: Code(s): F41.9 - Anxiety disorder, unspecified Category: Medical Plan: Uncontrolled. Patient exhibiting pressured speech and frequent changing of topics. Discussed that her inhaler at this point is not the cause of her anxiety. I do recommend she follow-up with a counselor and recommend psychiatrist. She is given website to seek out counselor and psychiatrist. Plan Follow-up in 2-3 weeks for blood pressure check which patient is refusing. She will follow-up in 6 months. Referred for mammogram. Cologuard ordered Orders: Referrals Pulmonology Referral R06.2 - Wheezing Medications: New lisinopril 20 mg PO DAILY 90 tabs 1RF Discontinued lisinopril Discontinued Reason: Doctor's Order 10 mg PO DAILY 90 tabs 0RF Patient Instructions: Please schedule a psychiatrist [email or web address]
[2025-07-12 16:43] VITALS: BP 164/80
== END 2025-07-12 16:54 | disposition home or self-care (01) ==
LOC: HO.HMCHD 16:23
PROVIDERS: PCP Physician Assistant; Visit Provider Physician Assistant
DX: I10 Essential (primary) hypertension (principal); R25.1 Tremor, unspecified; F17.210 Nicotine dependence, cigarettes, uncomplicated; R06.2 Wheezing; F41.9 Anxiety disorder, unspecified

== ENCOUNTER → 2025-07-12 16:23 | Outpatient (BNVA) | payer MEDICARE, MEDICAID, SELFPAY | PROVIDERS: PCP Physician Assistant; Visit Provider Physician Assistant | DX: I10 Essential (primary) hypertension (principal); R25.1 Tremor, unspecified; F17.210 Nicotine dependence, cigarettes, uncomplicated; R06.2 Wheezing; F41.9 Anxiety disorder, unspecified | CPT/HCPCS: 99212 ==